=== PATIENT | female | born 1965 | race Caucasian/White ===

== ENCOUNTER 2018-10-14 19:36 | Emergency (ER) | payer OTHER, SELFPAY ==
[~2018-10-14] VITALS: Ht 160 cm; Wt 57.4 kg
[2018-10-14 19:58] VITALS: BP 90/60
== END 2018-10-14 20:54 | disposition home or self-care (01) ==
LOC: ED 20:48
DX: S16.1XXA Strain of muscle, fascia and tendon at neck level, initial encounter (principal); M54.12 Radiculopathy, cervical region; M62.830 Muscle spasm of back; V49.49XA Driver injured in collision with other motor vehicles in traffic accident, initial encounter; Y93.89 Activity, other specified; Y92.89 Other specified places as the place of occurrence of the external cause; Y99.8 Other external cause status
CPT/HCPCS: 72050; 99283